=== PATIENT | male | born 1990 | race American Indian/Alaskan Native ===

== ENCOUNTER 2017-04-24 09:17 | Emergency (ER) | payer SELFPAY ==
[2017-04-24 10:26] VITALS: BP 124/80
--- NOTE | 2017-04-24 11:42 | Emergency Department Report ---
HPI - General Chief Complaint: Rectal Pain Time Seen by Provider: 04/24/17 11:28 - HPI HPI: 26-year-old male presents today complaining of rectal pain 2 weeks. Positive for history of internal hemorrhoids. Denies having colonoscopy performed. He tried Preparation H gel temporarily relief. Denies any pain at rest. Rates his pain as a 6 out of 10 with bowel movement. Admits to bright red blood when wiping. Denies fever, chills, nausea, vomiting, chest pain, shortness of breath , abdominal pain. ED Past Medical Hx - Past Medical History Previous Medical History?: No Additional medical history: Internal Hemorrhoids - Surgical History Past Surgical History?: No - Social History Smoking Status: Never Smoker Substance Use Type: None - Medications Home Medications: Home Medications Medication Instructions Recorded Confirmed Last Taken Type Ibuprofen [Motrin 800 MG tab] 800 mg PO Q8HR PRN #30 tablet 06/13/15 Unknown Rx Docusate Sodium [Colace] 100 mg PO BID PRN #60 capsule 04/24/17 Unknown Rx Hydrocortisone [Anucort-HC SUPPOS] 25 mg RC BID #60 supp.rect 04/24/17 Unknown Rx ED Review of Systems ROS: Stated complaint: HEMORRHOID PAIN,BLEEDING Other details as noted in HPI Constitutional: denies: chills, fever, malaise Eyes: denies: eye pain ENT: denies: ear pain, throat pain, congestion Respiratory: denies: cough, shortness of breath, wheezing Cardiovascular: denies: chest pain, palpitations Endocrine: no symptoms reported Gastrointestinal: hematochezia, other (to pain, history of hemorrhoids). denies : abdominal pain, nausea, vomiting, diarrhea Genitourinary: denies: urgency, dysuria, frequency, hematuria Musculoskeletal: denies: back pain Skin: denies: rash Neurological: denies: headache, weakness Physical Exam - Physical Exam Vital Signs: Vital Signs 04/24/17 10:19 Temperature 98.0 F Pulse Rate 67 Respiratory 20 Rate Blood Pressure 124/80 O2 Sat by Pulse 100 Oximetry Physical Exam: GENERAL: The patient is well-developed and well-nourished. Patient is in NAD. HEAD: Normocephalic. Atraumatic. NECK: Supple, nontender, without lymphadenopathy. No meningitic signs are noted. CHEST/LUNGS: Clear to auscultation throughout. HEART/CARDIOVASCULAR: Regular rate and rhythm. No murmurs, rubs or gallops. ABDOMEN: Abdomen is soft, nontender. Bowel sounds normoactive. No guarding or rebound tenderness. Negative for CVA tenderness bilaterally. RECTAL: Small external hemorrhoid noted on exam, does not appear thrombosed or engorged. No active bleeding. Mild to moderate tenderness to palpation. EXTREMITIES: Peripheral pulses intact. Capillary refill less than 2 seconds. NEURO: Alert and oriented x 3. Normal gait. ED Course Vital Signs 04/24/17 10:19 Temperature 98.0 F Pulse Rate 67 Respiratory 20 Rate Blood Pressure 124/80 O2 Sat by Pulse 100 Oximetry ED Medical Decision Making - Lab Data Vital Signs 04/24/17 10:19 Temperature 98.0 F Pulse Rate 67 Respiratory 20 Rate Blood Pressure 124/80 O2 Sat by Pulse 100 Oximetry - Medical Decision Making 26-year-old who presents today complaining of rectal pain 2 weeks. On exam an external hemorrhoid is noted. Patient is in no acute distress at this time. He will be discharged home and is encouraged to follow up with a primary care provider. He will be sent home on Anusol and Colace and is encouraged to return to the emergency room for any worsening symptoms. Critical care attestation.: If time is entered above; I have spent that time in minutes in the direct care of this critically ill patient, excluding procedure time. ED Disposition Clinical Impression: Acute hemorrhoid Disposition: DC-01 TO HOME OR SELFCARE Is pt being admited?: No Does the pt Need Aspirin: No Condition: Stable Instructions: Hemorrhoids (ED) Additional Instructions: Follow-up with primary care provider. Return to emergency department if symptoms worsen. Prescriptions: Docusate Sodium [Colace] 100 mg PO BID PRN #60 capsule PRN Reason: Hemorrhoids Hydrocortisone [Anucort-HC SUPPOS] 25 mg RC BID #60 supp.rect Referrals: PRIMARY CARE, [Primary Care Provider] - 3-5 Days [facility] [Provider Group] - 3-5 Days Forms: Work/School Release Form(ED) Time of Disposition: 11:44
== END 2017-04-24 11:57 | disposition home or self-care (01) ==
LOC: ED 09:17
DX: K64.9 Unspecified hemorrhoids (principal)
CPT/HCPCS: 99282